=== PATIENT | female | born 1990 | race Caucasian/White ===

== ENCOUNTER 2017-01-13 13:15 | Observation (INO) | payer OTHER ==
[~2017-01-13] VITALS: Ht 165.1 cm; Wt 65.0 kg
[2017-01-13] VITALS (8 sets, daily range): BP systolic 99–119; BP diastolic 55–86; PULSE 67–85; TEMP 97.6
[2017-01-13 14:23] LABS: BASO # 0.1 (0.0-0.2); BASO % 0.8 % (0.0-2.0); EOS # 0.2 (0.0-0.7); EOS % 2.1 % (0-4.0); GRAN # 4.1 (1.4-6.5); GRAN % 58.1 % (42.2-75.2); HEMOGLOBIN 13.6 g/dl (12.5-16.0); LYMPH # 2.1 (1.2-3.4); LYMPH % 29.4 % (20.0-51.0); MEAN CELL VOLUME 92 fl (80.0-100.0); MEAN CORPUSCULAR HEMOGLOBIN 30 pg (27.0-31.0); MEAN CORPUSCULAR HGB CONC 33 g/dl (33.0-37.0); MEAN PLATELET VOLUME 10.2 fl (7.4-10.4); MONO # 0.7 (0.1-0.6); MONO % 9.2 % (1.7-9.3); PLATELET COUNT 257 K/mm3 (130-400); RED BLOOD COUNT 4.48 M/mm3 (4.10-5.30); REDCELL DISTRIBUTION WIDTH-CV 12.5 % (11.5-14.5); WHITE BLOOD COUNT 7.1 K/mm3 (4.8-10.8)
[2017-01-13 14:26] LABS: PH 7 (5-8); URINE APPEARANCE Hazy; URINE BACTERIA Rare /hpf; URINE BILIRUBIN Negative (NEGATIVE); URINE BLOOD Negative (NEGATIVE); URINE COLOR Yellow; URINE GLUCOSE Negative (NEGATIVE); URINE KETONE Negative (NEGATIVE); URINE RBC 0-2 /hpf; URINE UROBILINOGEN Negative (NEGATIVE); URINE WBC 0-2 /hpf
[2017-01-13 14:36] LABS: ALBUMIN 4.4 gm/dL (3.5-5.0); BILIRUBIN,TOTAL 0.5 mg/dL (0.0-1.0); C-REACTIVE PROTEIN 1.1 mg/dL (0.0-0.9); CALCIUM 9.3 mg/dL (8.4-10.2); CREATININE, serum 0.66 mg/dL (0.52-1.25); POTASSIUM 3.6 mmol/L (3.4-5.0); TOTAL PROTEIN 8.1 gm/dL (6.4-8.2)
[2017-01-14 03:00] VITALS: BP 112/68; PULSE 55; TEMP 97.4
[2017-01-14 09:00] VITALS: BP 97/56; PULSE 59; TEMP 97.8
== END 2017-01-14 13:50 | disposition home or self-care (01) ==
LOC: COL.ER 13:15 → EDBD 13:30 → COL.ER 13:30 → OB 16:35
PROVIDERS: Nurse Practitioner
DX: K80.00 Calculus of gallbladder with acute cholecystitis without obstruction (principal); K82.1 Hydrops of gallbladder
CPT/HCPCS: G0378; J1100; J1170; J1885; J1956; J2250; J2405; J2704; J2710; J3010; J7030; Q9967